=== PATIENT | female | born 1990 | race Caucasian/White ===

== ENCOUNTER 2019-03-09 23:10 | Emergency (ER) | payer OTHER, SELFPAY ==
[2019-03-09 23:11] VITALS: BP 126/93; PULSE 100; RESP 16; TEMP 36.7; O2SAT 100; BMI 26.6
--- NOTE | 2019-03-09 23:42 | ED.DCSUM_ITS ---
History of Present Illness Chief Complaint: Abd Pain Informant: Patient Narrative: Presents with lower abdominal pain. She had a vaginal after a week ago with no complications. She labored only for 5 hours. She describes cramping pain in her lower pelvic area similar to period cramps. She did take Motrin around 6 PM with good relief of symptoms. She denies any urinary symptoms. She denies any significant vaginal discharge. She has some very mild bleeding in his only used 1 pad throughout the whole day today. It has not changed much. She denies any fevers or chills. No nausea or vomiting. Normal bowel movements. Past Medical History - Allergies and Home Meds Allergies/Adverse Reactions: Allergies No Known Allergies Allergy (Verified 03/09/19 23:13) Primary Care Physician: Isaac Pelayo DO [Primary Care Provider] - Prior records reviewed: Yes Past Medical History: None Surgical History: appendectomy, - - Lives: With Family Smoking Status: Never smoker Alcohol: None Drugs: None Review of Systems General: Denies: Chills, Fever, Sweats Eyes: Denies: Visual changes - bilaterally, Diplopia ENT: Denies: Rhinorrhea, Sore throat Cardiovascular: Denies: Chest pain, Palpitations Respiratory: Denies: Dyspnea, Cough, Dyspnea on exertion Gastrointestinal: Reports: Abdominal pain. Denies: Nausea, Vomiting, Diarrhea, Melena, Hematochezia Genitourinary: Denies: Dysuria, Hematuria, Frequency Musculoskeletal: Denies: Back pain, Extremity Pain Skin: Denies: Rash, Wounds Neurological: Denies: Headache, Weakness, Numbness Physical Exam Vital Signs/Narrative: Vital Signs Temp Pulse Resp BP Pulse Ox 03/09/19 23:11 98.1 F 100 16 126/93 H 100 General: Well nourished, Well developed, No Acute Distress Head: Normocephalic, Atraumatic Eyes: Perrl, EOMI ENT: Moist mucous membranes, No rhinorrhea Neck: Supple, Nontender Cardiovascular: Regular rate, Regular rhythm, No murmurs Respiratory: No distress, CTA bilaterally, Chest nontender Abdomen: Soft, Nondistended, Normal bowel sounds, Tender. Negative for: Nontender - Mild suprapubic tenderness without guarding or rebound Back: Nontender, Normal Inspection Extremities: Nontender, No edema Skin: Normal color, No rash Neurological: Alert, Oriented x3, Cranial nerves II-XII grossly intact, Normal Strength, Normal Sensation Psychological: Normal affect, Normal Mood Diagnostic/Tx/Re-eval Impressions Abdomen/Pelvis CT 03/10/19 00:38 IMPRESSION: Enlarged heterogeneous uterus likely due to state otherwise negative enhanced CT of the abdomen and pelvis. Further evaluation with dedicated pelvic ultrasound may be of value. Electronically Signed: Reagan Carreon, at 1:41 EST Tel , Service support , 03/10/19 00:38 Abdomen/Pelvis W IV Cont ONLY [CT] Stat Laboratory Results 03/09/19 03/09/19 03/09/19 23:45 23:45 23:45 WBC 16.0 H RBC 5.09 Hgb 13.7 Hct 43.1 MCV 84.7 MCH 26.9 L MCHC 31.8 L RDW Std Deviation 45.6 H RDW Coeff of Ren 14.7 H Plt Count 206 MPV 11.0 Immature Gran % (Auto) 1.000 H Neut % (Auto) 71.9 H Lymph % (Auto) 17.0 L [place] % (Auto) 8.8 Eos % (Auto) 0.9 Baso % (Auto) 0.4 Absolute Neuts (auto) 11.5 H Absolute Lymphs (auto) 2.72 Nucleated RBC % 0 Sodium 140 Potassium 3.7 Chloride 107 Carbon Dioxide 26.0 Anion Gap 7 BUN 14 Creatinine 0.70 Estim Creat Clear Calc 121.78 Est GFR (MDRD) Af Amer 129 Est GFR (MDRD) Non-Af 107 BUN/Creatinine Ratio 20.1 H Glucose 83 Calcium 8.9 Total Bilirubin 0.30 Direct Bilirubin 0.11 AST 12 L ALT 26 Alkaline Phosphatase 118 H Total Protein 7.5 Albumin 2.9 L Globulin 4.6 H Lipase 137 Urine Color Straw Urine Clarity Clear Urine pH 6.5 Ur Specific [place] 1.010 Urine Protein Negative Urine Glucose (UA) Normal Urine Ketones Negative Urine Occult Blood 250 H Urine Nitrite Negative Urine Bilirubin Negative Urine Urobilinogen Normal Ur Leukocyte Esterase 100 H Urine RBC 0 SEEN Urine WBC 0-5 SEEN Ur Squamous Epith Cells 0 SEEN Urine Bacteria 0 SEEN Urine Mucus 0 SEEN - Medical Decision Making Patient did not want anything for pain. Lab work obtained. Lab work shows a white blood cell count of 16,000. Electrolytes unremarkable. T showed no major abnormalities. Lipase negative. Urinalysis shows no evidence of infection. CT abdomen pelvis with IV contrast obtained to rule out abscess. This is negative for acute abnormality. Enlarged uterus secondary to her previous noted. Pelvic exam shows no foul-smelling discharge but endometritis is still in the differential. I will treat the patient empirically for endometritis with amoxicillin and Flagyl. I feel she can follow-up with her EXECUTIVE COMPENSATION ANALYST. She was delivered by building insulation installer. She does have an EXECUTIVE COMPENSATION ANALYST however that she will reach out to tomorrow. She is nontoxic. I do not feel she needs admitted. ED Disposition - Plan for ED Patient: Disposition: Psychiatric Hospital or Unit Diagnosis: Endometritis Instructions: Endometritis, Obstetric Prescriptions: Amoxicillin 500 mg PO TID #20 tab Prescription Printed metroNIDAZOLE [Flagyl] 500 mg PO Q8H #21 tab Prescription Printed Referrals: Isaac Pelayo DO [Primary Care Provider] - Additional Instructions: Follow with your EXECUTIVE COMPENSATION ANALYST in the office
[2019-03-09 23:55] LABS: Bacteria 0 SEEN /hpf (None Seen); Mucous, Urine 0 SEEN /hpf (<or=2+); Red Blood Cells-Urine 0 SEEN /hpf (0-5); Squamous Epithelial Cells - UA 0 SEEN /hpf (5-10)
[2019-03-10] LABS: Absolute Lymphocyte Count 2.72 X10^3/uL (0.83-4.51); Absolute Neutrophil Count 11.5 X10^3/uL (2.0-7.7); Basophil# 0.06 X10^3/uL; Basophil% 0.4 % (0-1); Eosinophil# 0.15 X10^3/uL; Eosinophils% 0.9 % (0-5); Hematocrit 43.1 % (37-47); Hemoglobin 13.7 g/dL (12.0-15.0); Lymphocyte # 2.72 X10^3/ul (4.0); Mean Corp Hgb Conc 31.8 g/dL (32-36); Mean Corpuscular Hgb 26.9 pg (27.0-32.0); Mean Corpuscular Volume 84.7 fL (81-99); Monocyte% 8.8 % (0-10); NRBC Flagged by Analyzer 0 % (0-5); Neutrophil # 11.51 X10^3/uL (2.7-7.7); Neutrophil % 71.9 % (47-70); Platelet Count 206 K/mm3 (150-450); RBC Distribution Width CV 14.7 % (11.6-14.6); RBC Distribution Width SD 45.6 fl (35.1-43.9); Red Blood Count 5.09 M/mm3 (4.2-5.4)
[2019-03-10 00:01] LABS: Color, Urine Straw (Yellow); Glucose, Dipstick Normal (Normal); Ketone-Dipstick Negative (Negative); Leukocyte Esterase-Dipstick 100 /ul (Negative); Nitrite-Dipstick Negative (Negative); Occult Blood-Urine 250 /ul (Negative); Protein-Dipstick Negative (Negative); Urine Bilirubin Dipstick Negative (Negative); Urine Clarity Clear (Clear); Urine Urobilinogen Normal (Normal); Urine pH 6.5 (5.0 - 8.0)
[2019-03-10 00:08] LABS: White Blood Cells 0-5 SEEN /hpf (0-5)
[2019-03-10 00:22] LABS: AST(SGOT) 12 U/L (15-37); Alanine Aminotransfer ALT/SGPT 26 U/L (13-56); Albumin, Serum 2.9 g/dL (3.2-5.0); Alkaline Phosphatase 118 U/L (45-117); Anion Gap 7 (5-15); BUN 14 mg/dL (7-18); BUN/Creat Ratio 20.1 RATIO (10-20); Bilirubin, Direct 0.11 mg/dL (0.00-0.30); Calcium,Total 8.9 mg/dL (8.5-10.1); Chloride 107 mmol/L (98-107); EST Glomerular Filtration Rate 107 mL/min (>60); Est Glom Filt Rate - Afr Amer 129 mL/min (>60); Estimated Creatinine Clearance 121.78 ml/min; Globulin 4.6 g/dL (2.2-4.2); Glucose 83 mg/dL (74-106); Lipase 137 U/L (73-393); Potassium 3.7 mmol/L (3.5-5.1); Protein, Total 7.5 g/dL (6.4-8.2); Sodium Level 140 mmol/L (136-145)
[2019-03-10 00:30] VITALS: BP 136/67; PULSE 72; RESP 18; O2SAT 98
--- NOTE | 2019-03-10 00:38 | CT_ITS ---
STUDY: CT ABDOMEN AND PELVIS WITH CONTRAST REASON FOR EXAM: Female, 28 years old. Lower abdominal and pelvic pain RADIATION DOSAGE (If Supplied By Facility): CTDIvol = ( 13.46 ) mGy, DLP = ( 866.06 ) mGycm TECHNIQUE: Transaxial images were obtained from the dome of the diaphragm to the symphysis pubis without oral contrast. IV 100mL Isovue-370 100ML was administered. Sagittal and coronal images were reconstructed. Individualized dose optimization techniques were used for this CT. COMPARISON: None. FINDINGS: The visualized lung bases are unremarkable. The visualized portions of the heart are within normal limits. Normal liver. Normal gallbladder and extrahepatic biliary system. Normal spleen. Normal pancreas. Normal bilateral adrenal glands. Normal right kidney. Normal left kidney. Normal visualized stomach. Normal small intestine. There is a moderate amount of retained stool within the ascending and transverse colon. Correlate for constipation. Anastomotic suture line visualized involving the ascending colon. There is non-visualization of the appendix. Normal abdominal aorta. Normal inferior vena cava. Normal retroperitoneum. Normal urinary bladder. The uterus is enlarged and heterogeneous in density consistent with state. There is a small ventral abdominal wall fat-containing hernia. There is a chronic-appearing left L5 pars defect. There is no pelvic free fluid visualized. CT/Abdomen/Pelvis W IV Cont ONLY IMPRESSION: Enlarged heterogeneous uterus likely due to state otherwise negative enhanced CT of the abdomen and pelvis. Further evaluation with dedicated pelvic ultrasound may be of value. Electronically Signed: Reagan Carreon, at 1:41 EST Tel , Service support ,
[2019-03-10] MEDS: 0.9% Normal Saline 1,000 ML 1000 ML IV (01:49)
[2019-03-10] MEDS: AMOXICILLIN 500 MG CAPSULE PO (02:24)
== END 2019-03-10 02:42 | disposition home or self-care (01) ==
PROVIDERS: Emergency Provider Emergency Medicine; Family Provider Family Medicine; PCP Family Medicine
DX: N71.9 Inflammatory disease of uterus, unspecified (principal)
CPT/HCPCS: 74177; 80048; 80076; 81001; 83690; 85025; 96360; 99284; J7030; Q9967; A4216

== ENCOUNTER 2023-12-10 07:37 | Inpatient (IN) | payer SELFPAY, OTHER ==
[2023-12-10] VITALS (23 sets, daily range): BP systolic 107–146; BP diastolic 66–91; PULSE 60–90; RESP 16; TEMP 36.2–36.8; O2SAT 98; BMI 71.0
--- NOTE | 2023-12-10 07:59 | PCM.HP.OB ---
HPI - General General Date of Admission: 12/10/23 HPI Narrative BERNA HAMMER, is a 33 F who presents at 39w6d for induction of labor. Maternal Data Information WILMA Calculator Estimated Delivery Date Method Current WG Current Estimate 12/11/23 Manual 39w 6d PFSH PFSH Home Medications ?Medication ?Instructions ?Recorded ?Last Taken ?Type amoxicillin 500 mg tablet 500 mg PO TID #20 tabs 03/10/19 Unknown Rx metronidazole 500 mg tablet 500 mg PO Q8H #21 tabs 03/10/19 Unknown Rx amoxicillin 875 mg-potassium 1 tab PO Q12H #14 tabs 11/03/21 Unknown Rx clavulanate 125 mg tablet Allergy/AdvReac Type Severity Reaction Status Date / Time No Known Allergies Allergy Verified 12/10/23 07:32 Social History Smoking Status: Never smoker NST FHR Rate Baby A Baseline: 135 Variability:: Moderate Accelerations:: 15 x 15 Decelerations:: None FHR Category:: Category I Uterine Activity:: Irregular ROS Constitutional Constitutional: Reports systems reviewed and no addt'l complaints, except as documented; Denies headache(s) Eyes Eyes: Denies acute decrease in peripheral vision, blurry vision or change in vision ENT HEENT: Reports systems reviewed and no addt'l complaints, except as documented Cardiovascular Cardiovascular: Denies chest pain or dizziness Respiratory/Chest Respiratory/Chest: Denies cough, dyspnea, dyspnea on exertion, shortness of breath at rest or shortness of breath with exertion Gastrointestinal Gastrointestinal: Denies abdominal pain, diarrhea, nausea or vomiting Genitourinary Genitourinary: Denies abdominal discomfort Musculoskeletal Musculoskeletal: Denies limited range of motion Integumentary Integumentary: Reports systems reviewed and no addt'l complaints, except as documented Neurologic Neurologic: Reports systems reviewed and no addt'l complaints, except as documented Psychiatric Psychiatric: Reports systems reviewed and no addt'l complaints, except as documented Endocrine Endocrinology: Reports systems reviewed and no addt'l complaints, except as documented Hematologic/Lymphatic Hematologic/Lymphatic: Reports systems reviewed and no addt'l complaints, except as documented Allergic/Immunologic Allergic/Immunologic: Reports systems reviewed and no addt'l complaints, except as documented Vital Signs Vital Signs Vital Signs: Weight Weight: 467 lb 6.08 oz Body Mass Index (BMI) 71.0 Physical Exam Const alert and oriented x3 General Appearance: cooperative Orientation / Consciousness: awake, oriented to person, oriented to place and oriented to time Exam Limitations: no limitations HEENT normocephalic Head and Scalp: normal to inspection, normocephalic and atraumatic Face and Sinus: normal facial exam Eyes General Eye: normal appearance of both eyes Neck full ROM Chest Chest: symmetrical chest wall rise Resp normal respiratory effort and normal air movement Auscultation: clear to auscultation bilaterally Cardio regular rate, regular rhythm, S1 normal heart sound, S2 normal heart sound, no murmurs, no rub, no gallops and no clicks GI normal to inspection, nondistended, normoactive bowel sounds and non-tender appearance of the vagina normal Bladder / Kidney Exam: no CVA tenderness Back/Spine normal ROM Extremity normal to inspection and full ROM Skin no rashes or lesions noted Neuro oriented x3, CN's II-XII intact bilaterally and moves all extremities Sensorium / Orientation: awake, alert and oriented to person Motor Exam: clonus absent Deep Tendon Reflexes: Rt Patellar (L4): 2+ and Lt Patellar (L4): 2+ Labs Labs Labs: Antibody Screen Pending Hct 43.1 % (37-47) Hgb 13.7 g/dL (12.0-15.0) Syphilis Total Ab Pending GBS negative RPR Negative Rubella Non immune HBsAG negative HepC negative HIV negative B Positive GC/CT negative Assessment & Plan (1) Encounter for induction of labor: (2) 39 weeks gestation of : (3) Encounter for trial of labor: (4) History of : (5) Rubella non-immune status, antepartum: (6) History of section: (7) History of depression: (8) Depression affecting : COMMENT: Taking Zoloft 50mg PO once daily. Started during . (9) Anesthesia complication: COMMENT: History of shallow breathing with anesthesia. (10) History of varicose veins of lower extremity: PLAN: Plan 1) Admit to labor and delivery 2) Routine labs 3) TOLAC consent signed, prior successful 4) Declines epidural placement at this time, desires unmedicated 5) Pitocin for induction then AROM 6) collaborative physician and notified of patient status.
[2023-12-10] MEDS: Penicillin G Pot 5,000,000 UNITS in 0.9% Normal Saline (100mL MB+) 100 ML 150 UNITS IV (08:05)
[2023-12-10] MEDS: Lactated Ringers 1,000 ML 50 ML IV (08:06)
[2023-12-10 08:45] LABS: Absolute Lymphocyte Count 1.76 X10^3/uL (0.83-4.51); Absolute Neutrophil Count 6.2 X10^3/uL (2.0-7.7); Basophil# 0.05 X10^3/uL; Basophil% 0.5 % (0-1); Eosinophil# 0.18 X10^3/uL; Hematocrit 43.8 % (37-47); Hemoglobin 14.6 g/dL (12.0-15.0); Lymphocyte # 1.76 X10^3/ul (0.83-4.51); Lymphocyte % 19.3 % (19-41); Mean Corp Hgb Conc 33.3 g/dL (32-36); Mean Corpuscular Hgb 30.3 pg (27.0-32.0); Mean Corpuscular Volume 90.9 fL (81-99); Monocyte# 0.81 X10^3/uL; Monocyte% 8.9 % (0-10); NRBC Flagged by Analyzer 0 % (0-5); Neutrophil # 6.23 X10^3/uL (2.7-7.7); Neutrophil % 68.5 % (47-70); Platelet Count 118 K/mm3 (150-450); RBC Distribution Width CV 14.7 % (11.6-14.6); RBC Distribution Width SD 48.2 fl (35.1-43.9); Red Blood Count 4.82 M/mm3 (4.2-5.4); White Blood Count 9.1 K/mm3 (4.4-11.0)
[2023-12-10] MEDS: Oxytocin 15 Units/NS 250ml 15 UNITS/250 ML IV.SOLN 2 UNITS IV (09:02)
[2023-12-10 09:38] LABS: Syphilis Antibodies Non-reactive
[2023-12-10] MEDS: Penicillin G 3,000,000 Units 50 ML 100 UNITS IV (12:27)
[2023-12-10] MEDS: Methylergonovine 0.2 MG/ML Ampul IM (14:10)
[2023-12-10] MEDS: Oxytocin 15 Units/NS 250ml 15 UNITS/250 ML IV.SOLN 83 UNITS IV (14:30)
--- NOTE | 2023-12-10 14:38 | EX.PCM.OBRPT ---
Assessment & Plan (1) (vaginal after ): (2) First degree perineal laceration: (3) Lactating mother: (4) History of depression: (5) Depression: (6) Rubella non-immune status, antepartum: Maternal Data Information WILMA Calculator Estimated Delivery Date Method Current WG Current Estimate 12/11/23 Manual 39w 6d Vaginal Delivery Maternal Presentation Maternal Presentation: Elective Induction Type of Induction: Pitocin Operative Information Date of Procedure: 12/10/23 Pre-Operative Diagnosis: Elective IOL Post-Operative Diagnosis: , first degree perineal laceration Surgery / Procedure Performed: Spontaneous Vaginal Delivery Type of Anesthesia: None Drain: Velázquez to straight drain Estimated Blood Loss: 500 ml Time of Delivery: 13:57 Findings Description of Procedure: Progressed to complete with urge to push. Unmedicated. of viable male over first degree perineal laceration. APGARS 8,9 respectively. Infant head delivered with body immediately forthcoming. Placed on maternal abdomen, strong cry. Mouth and nares suctioned for secretions. Pitocin started for active 3rd stage management. Cord doubly clamped and cut by FOB after pulsations ceased, delayed cord clamping. Placenta delivered intact via babin, 3 vessel cord intact. Perineum inspected and revealed 1st degree perineal laceration. Repaired with 3.0 vicryl rapide. Consented to no anesthesia due to few sutures needed. Fundus boggy and bleeding continues, Methergine given IM x 1. Uterus firm and hemostasis achieved. EBL 500ml. Mom and baby stable, planning to breatfeed. Family bonding well. Dr. Mustafa notified of delivery. Presentation: Vertex and CHARBEL Amniotic Membrane Rupture Type: Artificial Amniotic Fluid Description: Clear Placental Delivery Description: Spontaneous Placenta Disposition: [facility] Cord Vessel Description: 3 Vessels Cord Entanglement: None A Gender: Male (1 minute): 8 (5 minute): 9 Delayed Cord Clamping: Yes Post Vaginal Delivery Medications Given After Delivery: IV Pitocin and IM Methergin Episiotomy Description: None Laceration: Perineal Extension/lac and 1st degree Complication Complications: None
[2023-12-10] MEDS: Acetaminophen 500 MG Tablet 1000 MG PO (20:27)
[2023-12-11 02:58] VITALS: BP 114/55; PULSE 69
[2023-12-11 03:00] VITALS: BP 114/55; PULSE 69; RESP 16
[2023-12-11 05:24] LABS: Absolute Lymphocyte Count 2.18 X10^3/uL (0.83-4.51); Absolute Neutrophil Count 7.9 X10^3/uL (2.0-7.7); Basophil# 0.04 X10^3/uL; Basophil% 0.4 % (0-1); Eosinophils% 1.8 % (0-5); Hematocrit 39.3 % (37-47); Hemoglobin 13.1 g/dL (12.0-15.0); Lymphocyte # 2.18 X10^3/ul (0.83-4.51); Lymphocyte % 19.4 % (19-41); Mean Corp Hgb Conc 33.3 g/dL (32-36); Mean Corpuscular Hgb 30.3 pg (27.0-32.0); Mean Platelet Vol. 11.8 fl (6.2-12.0); Monocyte# 0.89 X10^3/uL; Monocyte% 7.9 % (0-10); NRBC Flagged by Analyzer 0 % (0-5); Neutrophil # 7.88 X10^3/uL (2.7-7.7); Neutrophil % 69.9 % (47-70); POSITIVE COUNT YES; Platelet Count 98 K/mm3 (150-450); RBC Distribution Width CV 14.6 % (11.6-14.6); RBC Distribution Width SD 48.8 fl (35.1-43.9); Red Blood Count 4.32 M/mm3 (4.2-5.4); White Blood Count 11.3 K/mm3 (4.4-11.0)
[2023-12-11] MEDS: Acetaminophen 500 MG Tablet 1000 MG PO ×3 (06:14→19:44)
[2023-12-11 06:39] LABS: Differential Indicated SCAN CRITERIA MET
[2023-12-11 07:36] VITALS: BP 123/75; PULSE 76; PULSE 78; RESP 16; TEMP 36.6; O2SAT 98
--- NOTE | 2023-12-11 08:17 | PCM.PN.OB ---
Subjective Subjective Doing well.Minimal lochia. Pain controlled. Varicose veins flaring but ok. Trying to breast feed. Baby has to stay for testing tomorrow Objective Data Objective Data Vital Signs: Vital Signs Temp Pulse Resp BP Pulse Ox O2 Del Method 97.8 F 78 16 123/75 H 98 Room Air 12/11/23 07:36 12/11/23 07:36 12/11/23 07:36 12/11/23 07:36 12/11/23 07:36 12/11/23 07:36 Oxygen Delivery Method Room Air Weight: 212 kg Body Mass Index (BMI) 71.0 Intake & Output: Intake and Output for Last 24 Hours 12/09/23 12/10/23 12/11/23 23:59 23:59 23:59 Intake Total 1364.00 / 1364.00 Output Total 1400 / 1400 Balance -36.00 / -36.00 Lab / Micro Data 12/11/23 05:15 Labs: Laboratory Results - last 24 hr 12/10/23 07:55: WBC 9.1, RBC 4.82, Hgb 14.6, Hct 43.8, MCV 90.9, MCH 30.3, MCHC 33.3, RDW Std Deviation 48.2 H, RDW Coeff of Ren 14.7 H, Plt Count 118 L, Immature Gran % (Auto) 0.800, Neut % (Auto) 68.5, Lymph % (Auto) 19.3, [place] % (Auto) 8.9, Eos % (Auto) 2.0, Baso % (Auto) 0.5, Absolute Neuts (auto) 6.2, Absolute Lymphs (auto) 1.76, Nucleated RBC % 0, Syphilis Total Ab Non-reactive, Blood Type B POSITIVE, Antibody Screen NEGATIVE 12/11/23 05:15: WBC 11.3 H, RBC 4.32, Hgb 13.1, Hct 39.3, MCV 91.0, MCH 30.3, MCHC 33.3, RDW Std Deviation 48.8 H, RDW Coeff of Ren 14.6, Plt Count 98 L, MPV 11.8, Immature Gran % (Auto) 0.600, Neut % (Auto) 69.9, Lymph % (Auto) 19.4, [place] % (Auto) 7.9, Eos % (Auto) 1.8, Baso % (Auto) 0.4, Absolute Neuts (auto) 7.9 H, Absolute Lymphs (auto) 2.18, Nucleated RBC % 0 ROS Constitutional Constitutional: Denies fatigue, fever(s) or malaise Eyes Eyes: Denies change in vision ENT HEENT: Denies dizziness or headache(s) Cardiovascular Cardiovascular: Denies chest pain, dyspnea or lightheadedness Respiratory/Chest Respiratory/Chest: Denies cough or dyspnea Gastrointestinal Gastrointestinal: Denies change in bowel habits Genitourinary Genitourinary: Denies burning urination or genital lesions Integumentary Integumentary: Denies rash Neurologic Neurologic: Denies confusion, dizziness, headache(s), numbness or weakness Physical Exam Const alert and no apparent distress Narrative: Fundus firm, below umbilicus. Assessment & Plan (1) 39 weeks gestation of : (2) (vaginal after ): (3) History of varicose veins of lower extremity: PLAN: Plan Routine care. Expect discharge tomorrow
[2023-12-11 08:56] LABS: Platelet Estimate SLT DEC (ADEQ)
[2023-12-11] MEDS: Ibuprofen 600 MG Tablet PO ×2 (10:01→17:33)
[2023-12-11 13:32] VITALS: BP 93/51; PULSE 73; PULSE 75; RESP 16; TEMP 36.6; O2SAT 98
[2023-12-11 19:45] VITALS: BP 120/64; PULSE 77; RESP 16; TEMP 36.6
[2023-12-11 19:46] VITALS: BP 120/64; PULSE 77
[2023-12-12] MEDS: Acetaminophen 500 MG Tablet 1000 MG PO ×2 (01:56→14:32)
[2023-12-12 01:59] VITALS: BP 105/52; PULSE 79; RESP 16; TEMP 36.1
[2023-12-12 02:00] VITALS: BP 105/52; PULSE 79
--- NOTE | 2023-12-12 07:28 | PCM.PN.OB ---
Subjective Subjective Doing well. Minimal lochia. Pain controlled. Varicose veins flaring but ok. Breast feeding. Objective Data Objective Data Vital Signs: Vital Signs Temp Pulse Resp BP Pulse Ox O2 Del Method 97.0 F L 79 16 105/52 L 98 Room Air 12/12/23 01:59 12/12/23 02:00 12/12/23 01:59 12/12/23 02:00 12/11/23 13:32 12/12/23 01:59 Oxygen Delivery Method Room Air Weight: 212 kg Body Mass Index (BMI) 71.0 Intake & Output: Intake and Output for Last 24 Hours 12/10/23 12/11/23 12/12/23 23:59 23:59 23:59 Intake Total 1364.00 / 1364.00 Output Total 1400 / 1400 Balance -36.00 / -36.00 Lab / Micro Data 12/11/23 05:15 Labs: Laboratory Results - last 24 hr 12/11/23 05:15: WBC 11.3 H, RBC 4.32, Hgb 13.1, Hct 39.3, MCV 91.0, MCH 30.3, MCHC 33.3, RDW Std Deviation 48.8 H, RDW Coeff of Ren 14.6, Plt Count 98 L, MPV 11.8, Immature Gran % (Auto) 0.600, Neut % (Auto) 69.9, Lymph % (Auto) 19.4, [place] % (Auto) 7.9, Eos % (Auto) 1.8, Baso % (Auto) 0.4, Absolute Neuts (auto) 7.9 H, Absolute Lymphs (auto) 2.18, Nucleated RBC % 0, Platelet Estimate SLT DEC ROS Constitutional Constitutional: Denies fatigue, fever(s) or malaise Eyes Eyes: Denies change in vision ENT HEENT: Denies dizziness or headache(s) Cardiovascular Cardiovascular: Denies chest pain, dyspnea or lightheadedness Respiratory/Chest Respiratory/Chest: Denies cough or dyspnea Gastrointestinal Gastrointestinal: Denies change in bowel habits Genitourinary Genitourinary: Denies burning urination or genital lesions Integumentary Integumentary: Denies rash Neurologic Neurologic: Denies confusion, dizziness, headache(s), numbness or weakness Physical Exam Const alert and no apparent distress Narrative: Fundus firm, below umbilicus. Assessment & Plan (1) 39 weeks gestation of : (2) (vaginal after ): (3) History of varicose veins of lower extremity: PLAN: Plan Discharge home
--- NOTE | 2023-12-12 07:29 | PCM.DC.SUM ---
Providers Date of Admission: 12/10/23 Date of Discharge: 12/12/23 Primary Care Physician: Dr. Isaac Pelayo DO Reason For Visit: VAGINAL DELIVERY Diagnosis Discharge Diagnosis (1) 39 weeks gestation of : Status: Acute Code(s): Z3A.39 - 39 weeks gestation of (2) (vaginal after ): Status: Acute Code(s): O34.219 - Maternal care for unspecified type scar from previous delivery (3) History of varicose veins of lower extremity: Status: Acute Code(s): Z86.79 - Personal history of other diseases of the circulatory system Plan Discharge home Medications at Discharge Home Medications amoxicillin 500 mg tablet 500 mg PO TID #20 tabs 03/10/19 metronidazole 500 mg tablet 500 mg PO Q8H #21 tabs 03/10/19 amoxicillin 875 mg-potassium clavulanate 125 mg tablet 1 tab PO Q12H #14 tabs 11/03/21 Hospital Course Operations None Procedures None Summary of Care Provided Minutes Spent on Discharge: 21 Hospital Course: IOL of labor with previous hx of . Successful vaginal delivery. Varicose veins flaring and sore. Using compression and ice. Breast feeding. Weight / BMI Weight Weight: 212 kg Body Mass Index (BMI) 71.0 ABG / Lab / Microbiology Data 12/11/23 05:15 Laboratory: Laboratory Results - last 24 hr 12/11/23 05:15: WBC 11.3 H, RBC 4.32, Hgb 13.1, Hct 39.3, MCV 91.0, MCH 30.3, MCHC 33.3, RDW Std Deviation 48.8 H, RDW Coeff of Ren 14.6, Plt Count 98 L, MPV 11.8, Immature Gran % (Auto) 0.600, Neut % (Auto) 69.9, Lymph % (Auto) 19.4, [place] % (Auto) 7.9, Eos % (Auto) 1.8, Baso % (Auto) 0.4, Absolute Neuts (auto) 7.9 H, Absolute Lymphs (auto) 2.18, Nucleated RBC % 0, Platelet Estimate SLT DEC D/C Instructions May resume sexual activity in: 6 weeks Please Follow Up With: Sheri Pappas MD When: Follow up with our office in 1-2 and 6 weeks or as needed. [phone] Meaningful Use Info Meaningful Use Meaningful Use Diagnoses (Choose all that apply): None applicable Ischemic Stroke Statin Dosing Therapy Reference: STATIN DOSE THERAPY REFERENCE: * Patients > 75 years receive moderate or high dose statin therapy. * Patients 75 years or YOUNGER should receive HIGH intensity statin dose unless contraindicated. You will be required to document reason for non-treatment if statin daily dose does not meet guidelines. HIGH DOSE STATIN THERAPY DAILY Atorvastatin > than or = to 40 mg Rosuvastatin > than or = to 20 mg Amlodipine + Atorvastatin > than or = to 2.5/40 mg Ezetimibe + Simvastatin 10/80 mg Simvastatin 80mg Discharge Plan Admission Admit Date/Time: 12/10/23 07:37 Primary Reason for Your Visit: induction Attending Provider: Ladi Simeon Primary Care Provider: Isaac Pelayo Discharge Orders/Prescriptions Prescriptions: No Action amoxicillin-pot clavulanate 875-125 mg tablet 1 tab PO Q12H Qty: 14 0RF metronidazole 500 MG tablet 500 mg PO Q8H Qty: 21 0RF amoxicillin 500 MG tablet 500 mg PO TID Qty: 20 0RF Referrals / Follow Up: Isaac Pelayo, [Primary Care Provider] - Disposition Disposition (needs filled in before D/C Order can be placed): Home, Self Care
[2023-12-12 08:08] VITALS: BP 108/71; PULSE 86
[2023-12-12 08:09] VITALS: BP 108/71; PULSE 86; RESP 18; TEMP 36.7; O2SAT 99
[2023-12-12] MEDS: Ibuprofen 600 MG Tablet PO (10:55)
[2023-12-12 15:41] VITALS: BP 130/83; PULSE 95
[2023-12-12 16:19] VITALS: BP 130/83; PULSE 95; RESP 18; TEMP 36.4; O2SAT 99
--- NOTE | 2023-12-14 14:39 | NURSING ---
Edited Delivery Record for Successful .
== END 2023-12-12 16:55 | disposition home or self-care (01) | DRG 807 ==
PROVIDERS: Obstetrics & Gynecology; Admitting Provider Advanced Practice Midwife; PCP Family Medicine; Referring Provider Advanced Practice Midwife; Visit Provider Advanced Practice Midwife
DX: O34.219 Maternal care for unspecified type scar from previous cesarean delivery (principal); Z37.0 Single live birth; O99.344 Other mental disorders complicating childbirth; F32.A Depression, unspecified; O70.0 First degree perineal laceration during delivery; Z3A.39 39 weeks gestation of pregnancy; Z79.899 Other long term (current) drug therapy; Z87.59 Personal history of other complications of pregnancy, childbirth and the puerperium; O99.345 Other mental disorders complicating the puerperium
CPT/HCPCS: 59025; 59050; 85025; 86780; 86850; 86900; 86901; 99221; J7120; G0378